=== PATIENT | male | born 1940 | race Caucasian/White ===

== ENCOUNTER 2016-12-07 23:25 | Inpatient (IN) | payer OTHER ==
--- NOTE | ~2016-12-07 | DS ---
Discharge Summary [facility] [address] [facility] [place]. [address] NAME: BIN LIU : 41 STATUS : DIS IN PAT#: [id number] AGE: 76 ADM/REG DATE : 12/08/16 MR#: [id number] REPORT SERV DATE: 12/11/16 DICTATED BY: DATE: REPORT STATUS : Draft TRANSCRIBED BY: MODL DATE: 12/10/16 ADMISSION DATE: 12/08/2016 DISCHARGE DATE: 12/10/2016 DISCHARGE DIAGNOSES: 1. Left ureteral obstruction status post cystoscopy and stent placement. 2. Abnormal urinalysis. 3. Neutropenia chemo induced. 4. Hypocalcemia. 5. Metastatic prostate cancer. 6. Constipation. CONSULTATIONS: 1. Solitario Martinez M.D., Urology. 2. Evangelista Tang M.D., [facility]. PERTINENT TESTS AND PROCEDURES: 1. Cystoscopy urethral dilation. Left ureteral stent placement and complex catheterization on 12/08/2016. 2. Urinalysis, specimen collected 12/07/2016, moderate leukocyte tray, negative nitrite, 35 red blood cells, 45 white blood cells, rare bacteria. 3. Urine culture, final result, approximately 100,000 colonies. Staph species coag- negative likely specimen contamination. 4. Urinalysis, urine collected on 12/09/2016 in setting of greater than 24 hour antibiotic therapy. Result, large blood, negative leukocyte tray, positive nitrites, greater than 182 red blood cells, 0 white blood cells, less than 1 epithelial squamous cell. LABORATORY DATA: Sodium 146, potassium 4.1, chloride 113, BUN 16, creatinine 1.05, GFR 80, glucose 118, calcium 6.9, and ionized calcium 4.13. White blood cell count 1.2, hemoglobin 9.0, hematocrit 26.9, platelets 226, and absolute neutrophil count 170. HOSPITAL COURSE: Please refer to history and physical dated 12/08/[address] Jeb Scruggs for complete details of the patient's initial presentation upon admission and health history. Also refer to consultation dated 12/09/[address] Solitario Martinez, Urology. Briefly, the patient is a 76-year-old male with a history of metastatic prostate cancer with known metastases to the bones. The patient presented to the emergency department on 12/08/2016 with complaints of left lower back and flank pain. Initial evaluation in the emergency department was notable for stable vital signs, Discharge Summary [address] [place]. [address] NAME: BIN LIU : 41 STATUS : DIS IN PAT#: [id number] AGE: 76 ADM/REG DATE : 12/08/16 MR#: [id number] REPORT SERV DATE: 12/11/16 DICTATED BY: DATE: REPORT STATUS : Draft TRANSCRIBED BY: MODL DATE: 12/10/16 leukopenia of 1.2, absolute neutrophil count of 190, and evidence of a urinary tract infection. Initial workup diagnostic testing included CT of the abdomen and pelvis, which showed a 5 mm obstructing left ureteral calculus with moderate hydronephrosis and hydroureter. The patient was started on IV fluids and cefepime, and was admitted to the hospital for further evaluation and management. Urology was consulted, and the patient underwent cystoscopy, urethral dilation, left retrograde pyelogram, left ureteral stent placement and complex catheterization on 12/08/2016. The patient tolerated procedure without difficulty. Low back and flank pain has now completely resolved. The patient will discharge home with Akbar catheter in place with followup on 12/21/[address] Martinez, Urology, for Akbar removal and repeat KUB. 1. Left ureteral obstruction. The patient is status post cystoscopy with stent placement. Akbar catheter will remain in place upon discharge. Urine output 1350 mL in the past 24 hours. 2. Abnormal urinalysis. Urinalysis obtained upon admission was suspicious for infection; however, urine culture indicated contaminated specimen. The specimen was recollected on 12/09/2016 in the setting of antibiotic therapy greater than 24 hours. The patient was initially placed on cefepime upon admission secondary to probable urinary tract infection in the setting of neutropenia. Per Urology recommendation, the patient is to continue antibiotic therapy for 10 to 14 days total therapy. The patient was transitioned to Levaquin 750 mg p.o. every 24 hours last p.m. The patient will continue this therapy through 12/17/2016 to complete a total 10-day course of antibiotic. The patient has remained afebrile with no clinical signs or symptoms of recurrence of infection. 3. Neutropenia, this is chemotherapy induced. The patient will follow up with Dr. Sheikh at [facility] at 1:45 today. 4. Hypocalcemia. This may be related to low albumin. Ionized calcium was obtained prior to discharge and within normal limits. 5. Metastatic prostate cancer. The patient is under the outpatient care of Dr. Sheikh. He is currently being treated with Lupron and docetaxel. 6. Constipation. Constipation was resolved with bowel regimen to include MiraLAX and Senokot. The patient was advised to continue home MiraLAX while taking home pain medication prescribed per Urology. DISCHARGE CONDITION: At the time of discharge, the patient is hemodynamically stable. DISCHARGED DIET: 2000 calorie regular diet. DISCHARGE MEDICATIONS: 1. Lipitor 20 mg tablet p.o. daily at bedtime. 2. Levaquin 750 mg tablet p.o. every 24 hours, continued through 12/17/2016 to complete 10- day therapy. 3. MiraLAX 17 g p.o. daily at bedtime. Hold for diarrhea. 4. Flomax 0.4 mg tablet p.o. at bedtime. 5. Deltasone 5 mg tablet p.o. at bedtime. The patient takes his medication with supper; Discharge Summary [id number] [place]. [address] NAME: BIN LIU : 41 STATUS : DIS IN PAT#: [id number] AGE: 76 ADM/REG DATE : 12/08/16 MR#: [id number] REPORT SERV DATE: 12/11/16 DICTATED BY: DATE: REPORT STATUS : Draft TRANSCRIBED BY: MODL DATE: 12/10/16 however, it should be scheduled in a.m. Educate the patient regarding change in time of medication. 6. Compazine 10 mg tablet p.o. every 6 hours as needed. 7. Tylenol PM with diphenhydramine. The patient was encouraged to discontinue use of this medication secondary to recent urinary retention/obstruction. 8. Pyridium 200 mg tablet p.o. three times daily as needed. 9. Percocet 5/325 mg tablet p.o. every 4 hours as needed. Hold for sedation. DISCHARGE INSTRUCTIONS: 1. Follow up with Dr. Martinez on 12/21/2016 at 2:15 p.m. for Akbar removal and repeat KUB. 2. Follow up with Dr. Sheikh today at 1:45 p.m. The patient and his spouse were instructed to return to the emergency department if the patient experiences acute onset of fever 100.4 or greater lasting more than one hour, intractable chills, rigors, sweats, decreased or absence of Akbar catheter urine output, change in urine output to include blood clots or hematuria or any other health deviations that are new compared to baseline condition at the time of discharge. NELY/JOSEFA SOLE Portillo / [id number] CC: MD Sunny Perkins II, M.D.
--- NOTE | ~2016-12-07 | HP ---
History And Physical [place] [place]. [address] NAME: BIN LIU : 41 STATUS : ADM IN [facility]#: [id number] AGE: 76 ADM/REG DATE : 12/08/16 MR#: [id number] REPORT SERV DATE: 12/08/16 DICTATED BY: DONY VALLE DATE: 12/08/16 REPORT STATUS : Draft TRANSCRIBED BY: MODL DATE: 12/08/16 DATE OF ADMISSION: 12/08/2016 POINT OF ENTRY: [facility] Emergency Department. PRIMARY CARE PHYSICIAN: Sunny Medina M.D. PRIMARY ONCOLOGIST: Jamison Sheikh M.D. PRIMARY UROLOGIST: Solitario Martinez M.D. CHIEF COMPLAINT: Left lower back and flank pain. HISTORY OF PRESENT ILLNESS: Mr. Liu is a 76-year-old gentleman with a history of metastatic prostate cancer with known metastases to the bones that is unfortunately resistant to radiation therapy, antihormonal therapy, as well as Zytiga who presents with a one-day history of left-sided lower back and flank pain. The patient states he completed his chemotherapy regimen last week with Dr. Sheikh. He is unable to tell me what regimen he was going through. He saw Dr. Sheikh in clinic today, was noted to be leukopenic and neutropenic as well as there was some concern for dehydration. Dr. Sheikh gave him a liter of IV fluids and sent him home. The patient states initially the left lower back pain started last night and resolved somewhat with heat therapy at home. Shortly after seeing Dr. Sheikh in clinic today, he started to have sharp and stabbing left flank pain in the area of his kidney. Per discussion with Dr. Martinez as well as Dr. Sheikh, it was recommended a followup in the emergency department for further evaluation. He denies any fevers, night sweats, chills, chest pain, shortness of breath, abdominal pain, nausea, vomiting, diarrhea, constipation, dysuria, melena, hematochezia, or hemoptysis. Initial evaluation in the emergency department is notable for stable vital signs, labs notable for leukopenia of 1.2, neutropenic with a total neutrophils of 190, evidence of urinary tract infection. CT scan of the abdomen and pelvis shows a 5 mm obstructing left ureteral calculus with moderate hydronephrosis and hydroureter. The patient was started on IV fluids and antibiotics and admitted to the Hospitalist Service for further evaluation and management. REVIEW OF SYSTEMS: Comprehensive review of systems otherwise negative unless listed in the history present of illness. PREVIOUS MEDICAL HISTORY: 1. Metastatic prostate cancer with known metastases to the bones that has failed radiation therapy as well as antihormonal therapy, followed by Dr. Sheikh. History And Physical [address] [address] NAME: BIN LIU : 41 STATUS : ADM IN PAT#: [id number] AGE: 76 ADM/REG DATE : 12/08/16 MR#: [id number] REPORT SERV DATE: 12/08/16 DICTATED BY: DONY VALLE DATE: 12/08/16 REPORT STATUS : Draft TRANSCRIBED BY: JOSEFA DATE: 12/08/16 2. History of nephrolithiasis. 3. Hyperlipidemia. PAST SURGICAL HISTORY: Brachytherapy seed implantation. ALLERGIES: NO KNOWN DRUG ALLERGIES. HOME MEDICATIONS: 1. Atorvastatin 20 mg q.h.s. 2. Tylenol PM one tablet q.h.s. 3. Prednisone 5 mg q.h.s. 4. Compazine 10 mg q.6 hours p.r.n. 5. Flomax 0.4 mg q.h.s. SOCIAL HISTORY: Denies any tobacco, alcohol, or illicits. FAMILY MEDICAL HISTORY: Mother of old age in her early 90s. Father, stroke. Siblings, healthy. No known immediate or extended family history of prostate cancer. LABS AND IMAGIN. White count is 1.2, hemoglobin 10.5, hematocrit is 31.7, and platelet count is 109. PMNs are 190. 2. Sodium is 140, potassium 3.7, chloride 108, carbon dioxide 29, BUN 16, creatinine 1.05, glucose is 117, calcium is 8.7, protein is 5.7, albumin is 3.0, bilirubin is 0.7, ALT is 14, AST 9, and alkaline phosphatase is 69. 3. Lipase is 129. 4. Urinalysis: Spec gravity is 1.024, hazy in appearance, moderate leukocyte esterase, 35 reds, and 45 white blood cells per high-powered field with rare bacteria. 5. CT scan of the abdomen and pelvis shows a 5 mm left-sided ureteral calculus with resulting moderate hydroureteronephrosis as well as evidence of cholelithiasis without evidence of cholecystitis. PHYSICAL EXAMINATION: VITAL SIGNS: Temperature is 98.4 degrees Fahrenheit, pulse is 88, respirations 16, saturating 97% on room air, and blood pressure 123/59. On recheck, blood pressure is now 115/64 and pulse of 82. GENERAL: The patient is awake, alert, in no acute distress, and resting comfortably in bed. He is a well-developed, well-nourished, elderly male. HEENT: Atraumatic and normocephalic. Moist mucous membranes. Pupils are equal, round, reactive to light and accommodation. Extraocular eye movements are intact. No evidence of mucositis or thrush. NECK: No jugular venous distention. No carotid bruits. CARDIAC: Regular rate and rhythm. No murmurs, rubs, or gallops. Normal S1 and S2. LUNGS: Clear to auscultation bilaterally. No wheezes, rhonchi, or crackles. ABDOMEN: Obese, soft, nontender, and nondistended with good bowel sounds. No rebound, guarding, or rigidity. : No CVA tenderness or flank tenderness on palpation. History And Physical [address] [address] NAME: BIN LIU : 41 STATUS : ADM IN [facility]#: [id number] AGE: 76 ADM/REG DATE : 12/08/16 MR#: [id number] REPORT SERV DATE: 12/08/16 DICTATED BY: DONY VALLE DATE: 12/08/16 REPORT STATUS : Draft TRANSCRIBED BY: MODMarquis DATE: 12/08/16 EXTREMITIES: Warm and well perfused. No cyanosis, clubbing, or edema. SKIN: Warm and dry. PSYCH: Affect appropriate. NEURO: Alert and oriented x3. Cranial nerves II through XII are grossly intact. Speech is normal. Gait not assessed. ASSESSMENT AND PLAN: Mr. Liu is a 76-year-old gentleman with history of metastatic prostate cancer, recently completed a course of chemotherapy, now admitted with left back and flank pain, and found to have evidence of obstructing left-sided ureteral calculus as well as neutropenia. PROBLEM LIST: 1. Obstructing left-sided ureteral calculus with hydronephrosis and hydroureter. 2. Urinary tract infection. 3. Neutropenia. 4. Metastatic prostate cancer. PLAN: 1. Obstructing ureteral calculus with hydronephrosis and hydroureter. Provide supportive care with IV fluids, antiemetics, and pain control. Urology, Dr. Martinez, has already been consulted and planned for cystoscopy with stent placement in the morning. I will defer to both Dr. Martinez as well as Dr. Sheikh whether this procedure is indicated in the setting of neutropenia and active infection. 2. Urinary tract infection. The patient has received IV Rocephin here in the emergency department. I will broaden this to IV cefepime given his neutropenia. Followup urine cultures. 3. Neutropenia. Provide neutropenic precautions, aggressive antibiotic with IV cefepime. Checking procalcitonin as well as lactic acid level given urinary tract infection. Unfortunately, antibiotics were already given prior to collection of blood cultures. 4. Metastatic prostate cancer. We will consult Dr. Sheikh for assistance especially with his neutropenia and plan for cystoscopy with stent placement. 5. DVT prophylaxis. Heparin subcutaneously. 6. Code status. The patient wished to be full code. BRANDI/NICOLEL Dony Valle MD / [id number] CC: MD Sunny Perkins II, M.D. Michael Stipanov, M.D. History And Physical [address] [address] NAME: BIN LIU : 41 STATUS : ADM IN [facility]#: [id number] AGE: 76 ADM/REG DATE : 12/08/16 MR#: [id number] REPORT SERV DATE: 12/08/16 DICTATED BY: DONY VALLE DATE: 12/08/16 REPORT STATUS : Draft TRANSCRIBED BY: MODL DATE: 12/08/16 Solitario Martinez M.D.
--- NOTE | ~2016-12-07 | OP ---
Record Of Operation [facility] [address] [place]. [address] NAME: BIN LIU : 41 STATUS : ADM IN PAT#: [id number] AGE: 76 ADM/REG DATE : 12/08/16 MR#: [id number] REPORT SERV DATE: 12/08/16 DICTATED BY: RHYS RONQUILLO DATE: 12/08/16 REPORT STATUS : Draft TRANSCRIBED BY: MODMarquis DATE: 12/08/16 DATE OF PROCEDURE: 12/08/2016 PREOPERATIVE DIAGNOSIS: 1. Stage D prostate cancer, on Lupron and chemotherapy. 2. Left ureteral obstruction from a 5 mm mid left ureteral stone. 3. Urinary tract infection. POSTOPERATIVE DIAGNOSIS: 1. Stage D prostate cancer, on Lupron and chemotherapy. 2. Left ureteral obstruction from a 5 mm mid left ureteral stone. 3. Urinary tract infection. 4. Urethral stricture and scarred prostate. PROCEDURE PERFORMED: Cystoscopy, urethral dilation, left retrograde pyelogram, left ureteral stent placement, and complex catheterization. SURGEON: Rhys Ronquillo M.D. ANESTHESIA: General. ESTIMATED BLOOD LOSS: 15 mL. INDICATIONS: This is a 76-year-old white male, with stage D prostate cancer, on Lupron and chemotherapy. He developed intractable left flank pain last evening prompting an emergency room visit, and he was found to have an obstructing 5 mm left mid ureteral stone. His urine also looked infected. We are planning cystoscopy with left retrograde and left ureteral stent placement. The procedure itself as well as risks of infection, bleeding, failure, possible need for PCN placement have been discussed. PROCEDURE IN DETAIL: The patient was taken to the operating room and underwent a general anesthetic. He was placed in a lithotomy position on the table, and his external genitalia were sterilely prepped and draped. The 22-Bolivian cystoscope sheath with 30-degree lens was inserted under direct vision per urethra and advanced up to a level close to the bulbar urethra where a scar was noted. This was not passable with the scope. I was able to advance a long filiforms through it through the cystoscope, and dilated the area up to 22- Bolivian using followers. The 20-Bolivian cystoscope sheath with 30-degree lens was then advanced through this area. The prostate was small, but diffusely scarred, it appeared that the scarring ran from roughly the bulbar urethra through the prostate and to the bladder neck area. This was very raw looking, but there was not a lot of bleeding. The visibility in the bladder was poor and due to do this scarred prostate and bladder neck ability to torque the scope was very limited. I did not see the right orifice, I did see the left orifice and it looked normal. The bladder floor did not show any obvious tumor. The bladder sidewalls, posterior wall, and anterior wall were not well seen. I was able to place a 5-Bolivian open-ended catheter up into the left orifice and a retrograde pyelogram was obtained showing a mild dilatation of the ureter down into the pelvic area. I am not sure Record Of Operation [address] [place]. [address] NAME: BIN LIU : 41 STATUS : ADM [facility]#: [id number] AGE: 76 ADM/REG DATE : 12/08/16 MR#: [id number] REPORT SERV DATE: 12/08/16 DICTATED BY: RHYS RONQUILLO DATE: 12/08/16 REPORT STATUS : Draft TRANSCRIBED BY: JOSEFA DATE: 12/08/16 we ever saw a discrete stone. The renal collecting system was [id number] dilated. An 0.038 guidewire was advanced up through the cystoscope into the collecting system of the ureter under fluoroscopic guidance. A 5-Bolivian x 26 cm Polaris stent was advanced over the guidewire such that the proximal end of the stent was observed to coil in the pelvis of the kidney under fluoroscopic guidance and the distal end of the stent was visually observed to coil in the bladder following removal of the guidewire. A guidewire was then run through the cystoscope into the bladder, and the cystoscope was withdrawn over the guidewire, and a 20-Bolivian [place] tip catheter was advanced over the guidewire into the bladder without difficulty, and left to gravity drainage. The patient tolerated the procedure well. There were no complications. He was taken to recovery in stable condition. PEBBLES/JOSEFA Rhys Ronquillo M.D. / [id number] CC: MD Sunny Perkins II, M.D.
--- NOTE | ~2016-12-07 | CN ---
Consultation Report [facility] [address] [place]. [address] NAME: BIN LIU : 41 STATUS : ADM IN [facility]#: [id number] AGE: 76 ADM/REG DATE : 12/08/16 MR#: [id number] REPORT SERV DATE: 12/09/16 DICTATED BY: RHYS RONQUILLO DATE: 12/08/16 REPORT STATUS : Draft TRANSCRIBED BY: MODL DATE: 12/08/16 CONSULT DATE OF CONSULTATION: 12/08/2016 HISTORY: This is a 76-year-old white male, who is well known to me. He has stage D hormone- resistant prostate cancer and has just completed chemotherapy protocol per Dr. Sheikh. He, yesterday, abruptly developed severe intolerable left flank pain and went to the emergency room with this complaint. Evaluation in the emergency room demonstrated moderate left hydronephrosis associated with a 5-mm stone at the level of L4. His urine appeared to be infected as well. He has been admitted for antibiotic coverage and management of his obstructive uropathy. He denies running any fevers at home. He is about on baseline in terms of his voiding. He is able to void spontaneously. He does have significant urinary incontinence requiring wearing diapers. He was initially treated for prostate cancer approximately in 09/2006 with brachytherapy. He was subsequently given salvage cryotherapy in 06/2008. He was started on Lupron due to a rising PSA around 2009 and his PSA has slowly advanced despite this. He has subsequently completed failed rounds of Xtandi and Zytiga and has now just completed a round of chemotherapy by Dr. Sheikh. His admitting lab work showed him to be neutropenic as well with a white count of, I believe, 1.0. MEDICAL HISTORY: Otherwise includes a remote history of nephrolithiasis and hyperlipidemia. SURGICAL HISTORY: Outlined above. SOCIAL HISTORY: He is retired. He does not drink or smoke. He is . MEDICATIONS: Atorvastatin, Tylenol, prednisone, Compazine, Flomax, and Lupron. ALLERGIES: HE HAS NO ALLERGIES. PHYSICAL EXAMINATION: GENERAL: He is a pleasant white male, who is in no distress at this time. He is alert, oriented, and conversive. VITAL SIGNS: He is afebrile. His vital signs are stable. HEENT: Pupils, equal, round, and reactive. Extraocular movements intact. Oropharynx is clear. NECK: Supple. LUNGS: Clear. HEART: Regular. ABDOMEN: Soft, nontender, and nondistended. Mildly obese. BACK: No overt CVA tenderness. : Penis uncircumcised, normal. Testes, epididymitis, spermatic cords feel normal. Prostate gland actually feels relatively normal and is actually somewhat small. EXTREMITIES: No cyanosis or edema. Consultation Report [address] [place]. [address] NAME: BIN LIU : 42 STATUS : ADM IN PAT#: [id number] AGE: 76 ADM/REG DATE : 12/08/16 MR#: [id number] REPORT SERV DATE: 12/09/16 DICTATED BY: RHYS RONQUILLO DATE: 12/08/16 REPORT STATUS : Draft TRANSCRIBED BY: JOSEFA DATE: 12/08/16 IMPRESSION: 1. Stage D prostate cancer, on Lupron and chemotherapy. 2. Obstructing 5-mm mid left ureteral stone with intractable flank pain. 3. Urinary tract infection. 4. Neutropenia from his chemotherapy. 5. Remote history of prostate seed implantation with salvage cryotherapy. RECOMMENDATIONS: I agree completely with his current management. Urine culture is pending. I am going plan cystoscopy retrograde, left ureteral stenting today. This procedure has been discussed with the patient and his . They understand he will need delayed definitive stone treatment once his infection has resolved. We will follow along with you. Thank you for the consult. PEBBLES/JOSEFA Rhys Ronquillo M.D. / [id number] CC: MD Sunny Perkins II, M.D.
[2016-12-07 21:33] LABS: BASOPHILS 1.7 %; BASOPHILS ABSOLUTE 0.02 10/3/uL (0.0-0.16); EOSINOPHILS 0.9 %; EOSINOPHILS ABSOLUTE 0.01 10/3/uL (0.0-0.53); HEMOGLOBIN 10.5 g/dL (13.6-17.8); IMMATURE GRANULOCYTES 0.9 %; IMMATURE GRANULOCYTES ABSOLUTE 0.01 10/3/uL (0.0-0.11); LYMPHOCYTES 57.8 %; LYMPHOCYTES ABSOLUTE 0.67 10/3/uL (0.67-4.30); MEAN CORPUS HGB CONC 33.1 g/dL (32.0-36.0); MEAN CORPUSCULAR HEMOGLOB 30.4 pg (26.0-34.0); MEAN PLATELET VOLUME 9.4 fL (9.2-13.0); MONOCYTES 22.4 %; MONOCYTES ABSOLUTE 0.26 10/3/uL (0.21-1.20); NEUTROPHILS 16.3 %; NEUTROPHILS ABSOLUTE 0.19 10/3/uL (2.02-8.40); PLATELET COUNT 199 10/3/uL (150-400); RBC DISTRIBUTION WIDTH 15.6 % (12.0-16.0); RED CELL COUNT 3.45 10/6/uL (4.7-6.1)
[2016-12-07 21:36] LABS: ER CBC TAT 0 Hrs 07 Mins; HEMATOCRIT 31.7 % (40.0-51.0); MEAN CORPUSCULAR VOLUME 91.9 fL (80-100); WHITE BLOOD CELLS 1.2 10/3/uL (4.5-10.5)
[2016-12-07 21:38] LABS: MANUAL DIFF NO %
[2016-12-07 21:48] LABS: A/G RATIO 1.1 (0.7-1.9); ALKALINE PHOSPHATASE 69 U/L (45-117); BUN (BLOOD UREA NITROGEN) 16 MG/DL (6-23); CALCIUM, SERUM 8.7 MG/DL (8.5-10.4); CHLORIDE, SERUM 108 MMOL/L (96-112); CO2 (CARBON DIOXIDE) 29 MMOL/L (24-34); CREATININE 1.05 MG/DL (0.70-1.30); GFR AFRICAN AMERICAN 80 ML/MIN (>=60); GFR NON AFRICAN AMERICAN 69 ML/MIN (>=60); GLOBULIN 2.7 G/DL (2.5-4.1); GLUCOSE, SERUM 117 MG/DL (60-99); POTASSIUM, SERUM 3.7 MMOL/L (3.5-5.3); SGOT(AST) 9 U/L (5-40); SGPT(ALT) 14 U/L (5-65); SODIUM, SERUM 140 MMOL/L (135-148); TOTAL BILIRUBIN 0.7 MG/DL (0-1.2); TOTAL PROTEIN 5.7 G/DL (6.0-8.5)
[2016-12-07 22:15] LABS: ASCORBIC ACID (UR NOT ORDER) NEG (NEG); BILIRUBIN, URINE NEGATIVE (NEG); ER URINALYSIS TAT 0 Hrs 12 Mins; KETONE, URINE NEGATIVE (NEG); LEUKOCYTE ESTERASE(NOT OR MOD (NEG); NITRITE (URINE) NEG (NEG); WBC (NOT ORDERED) (RFLEX) 45 (0-5)
[2016-12-07 22:45] LABS: SEGMENTED NEUTROPHIL (0) 12 %; TOTAL NUCLEATED CELLS 50
[2016-12-07 22:46] LABS: ANISOCYTOSIS 1+ (5-10/OIF) (0-5/OIF); BAND NEUTROPHILS 2 %; BASOPHILS 2 %; BASOPHILS ABSOLUTE (CALC) 0.02 10/3/uL (0.0-0.16); ER DIFF TAT 1 Hrs 16 Mins; GIANT PLATELET OCC; LYMPHOCYTES 50 %; MONOCYTES 34 %; MONOCYTES ABSOLUTE (CALC) 0.41 10/3/uL (0.21-1.20); NEUTROPHILS ABSOLUTE (CALC) 0.17 10/3/uL (2.02-8.40); PLATELET ESTIMATE ADQ (ADEQUATE); POIKILOCYTOSIS 1+ (5-10/OIF) (0-5/OIF)
[~2016-12-07 23:25] MED LIST: CALCIUM IM; CALTRA600D PO; CASODEX 50 MG T50 MG OR; CASODEX 50 MG T50 MG PO; CIP5 PO; FISH-EPA1000 MG PO; FLOMAX4 PO; GLUCCHONDR PO; LIPITOR20 PO; LUPRON IM; LUPRON2 WEEK IJ; OS500+D PO; PCET PO; PROMEGA PO; PYR200 PO; XTANDI PO
[2016-12-08] MEDS ORDERED: FLOMAX4 PO (01:04)
[2016-12-08] MEDS ORDERED: LIPITOR20 PO (01:04)
[2016-12-08] MEDS ORDERED: COMP10B PO (01:05)
[2016-12-08] MEDS ORDERED: P5 PO (01:05)
[2016-12-08] MEDS ORDERED: TYLENOL PM PO (01:06)
[2016-12-08 03:16] LABS: LACTATE 1.6 MMOL/L (0.3-2.4)
[2016-12-08 06:39] LABS: HEMATOCRIT 30.8 % (40.0-51.0); HEMOGLOBIN 9.9 g/dL (13.6-17.8); MANUAL DIFF YES %; MEAN CORPUS HGB CONC 32.1 g/dL (32.0-36.0); MEAN CORPUSCULAR VOLUME 93.3 fL (80-100); MEAN PLATELET VOLUME 9.7 fL (9.2-13.0); PLATELET COUNT 204 10/3/uL (150-400); RBC DISTRIBUTION WIDTH 15.3 % (12.0-16.0)
[2016-12-08 06:49] LABS: BUN (BLOOD UREA NITROGEN) 14 MG/DL (6-23); CALCIUM, SERUM 8.2 MG/DL (8.5-10.4); CHLORIDE, SERUM 113 MMOL/L (96-112); CO2 (CARBON DIOXIDE) 25 MMOL/L (24-34); CREATININE 1.03 MG/DL (0.70-1.30); GFR AFRICAN AMERICAN 82 ML/MIN (>=60); GFR NON AFRICAN AMERICAN 71 ML/MIN (>=60); GLUCOSE, SERUM 119 MG/DL (60-99); POTASSIUM, SERUM 3.9 MMOL/L (3.5-5.3); SODIUM, SERUM 145 MMOL/L (135-148)
[2016-12-08 07:22] LABS: EOSINOPHILS 2 %; EOSINOPHILS ABSOLUTE (CALC) 0.02 10/3/uL (0.0-0.53); IMMATURE GRANS ABSOLUTE (CALC) 0.01 10/3/uL (0.0-0.11); LYMPHOCYTES 53 %; LYMPHOCYTES ABSOLUTE (CALC) 0.53 10/3/uL (0.67-4.30); MONOCYTES 26 %; MONOCYTES ABSOLUTE (CALC) 0.26 10/3/uL (0.21-1.20); MYELOCYTES 1 %; NEUTROPHILS ABSOLUTE (CALC) 0.18 10/3/uL (2.02-8.40); PLATELET ESTIMATE ADQ (ADEQUATE); SEGMENTED NEUTROPHIL (0) 18 %; TOTAL NUCLEATED CELLS 100
[2016-12-08 07:23] LABS: BURR CELLS 1+ (3-10/OIF) (0-2/OIF)
[2016-12-08 07:24] LABS: GIANT PLATELET OCC; OVALOCYTES 1+ (3-10/OIF) (0-2/OIF)
[2016-12-08 07:25] LABS: POIKILOCYTOSIS 1+ (5-10/OIF) (0-5/OIF)
[2016-12-09 05:17] LABS: HEMATOCRIT 29.1 % (40.0-51.0); HEMOGLOBIN 9.5 g/dL (13.6-17.8); MEAN CORPUS HGB CONC 32.6 g/dL (32.0-36.0); MEAN CORPUSCULAR HEMOGLOB 30.2 pg (26.0-34.0); MEAN CORPUSCULAR VOLUME 92.4 fL (80-100); MEAN PLATELET VOLUME 9.6 fL (9.2-13.0); PLATELET COUNT 203 10/3/uL (150-400); RBC DISTRIBUTION WIDTH 15.7 % (12.0-16.0); RED CELL COUNT 3.15 10/6/uL (4.7-6.1)
[2016-12-09 05:24] LABS: BUN (BLOOD UREA NITROGEN) 17 MG/DL (6-23); CALCIUM, SERUM 7.5 MG/DL (8.5-10.4); CHLORIDE, SERUM 112 MMOL/L (96-112); CO2 (CARBON DIOXIDE) 26 MMOL/L (24-34); CREATININE 1.07 MG/DL (0.70-1.30); GFR AFRICAN AMERICAN 78 ML/MIN (>=60); GFR NON AFRICAN AMERICAN 68 ML/MIN (>=60); MANUAL DIFF YES %; POTASSIUM, SERUM 4.3 MMOL/L (3.5-5.3); SODIUM, SERUM 144 MMOL/L (135-148); WHITE BLOOD CELLS 0.7 10/3/uL (4.5-10.5)
[2016-12-09 05:26] LABS: GLUCOSE, SERUM 171 MG/DL (60-99)
[2016-12-09 05:58] LABS: BAND NEUTROPHILS 1 %; LYMPHOCYTES 32 %; LYMPHOCYTES ABSOLUTE (CALC) 0.29 10/3/uL (0.67-4.30); MONOCYTES 25 %; MONOCYTES ABSOLUTE (CALC) 0.04 10/3/uL (0.21-1.20); NEUTROPHILS ABSOLUTE (CALC) 0.37 10/3/uL (2.02-8.40); PLATELET ESTIMATE ADQ (ADEQUATE); SEGMENTED NEUTROPHIL (0) 42 %; TOTAL NUCLEATED CELLS 100
[2016-12-09 05:59] LABS: RBC MORPHOLOGY NORM (NORMAL)
[2016-12-09 14:03] LABS: WBC (NOT ORDERED) (RFLEX) 0 (0-5)
[2016-12-09 14:18] LABS: ASCORBIC ACID (UR NOT ORDER) NEG (NEG); BILIRUBIN, URINE NEGATIVE (NEG); KETONE, URINE NEGATIVE (NEG); LEUKOCYTE ESTERASE(NOT OR NEG (NEG)
[2016-12-10 03:26] LABS: HEMATOCRIT 26.9 % (40.0-51.0); MEAN CORPUS HGB CONC 33.5 g/dL (32.0-36.0); MEAN CORPUSCULAR HEMOGLOB 30.7 pg (26.0-34.0); MEAN CORPUSCULAR VOLUME 91.8 fL (80-100); MEAN PLATELET VOLUME 9.5 fL (9.2-13.0); PLATELET COUNT 226 10/3/uL (150-400); RBC DISTRIBUTION WIDTH 15.6 % (12.0-16.0); RED CELL COUNT 2.93 10/6/uL (4.7-6.1)
[2016-12-10 03:27] LABS: MANUAL DIFF YES %; WHITE BLOOD CELLS 1.2 10/3/uL (4.5-10.5)
[2016-12-10 03:39] LABS: BUN (BLOOD UREA NITROGEN) 16 MG/DL (6-23); CHLORIDE, SERUM 113 MMOL/L (96-112); CO2 (CARBON DIOXIDE) 26 MMOL/L (24-34); CREATININE 1.05 MG/DL (0.70-1.30); GFR AFRICAN AMERICAN 80 ML/MIN (>=60); GFR NON AFRICAN AMERICAN 69 ML/MIN (>=60); POTASSIUM, SERUM 4.1 MMOL/L (3.5-5.3); SODIUM, SERUM 146 MMOL/L (135-148)
[2016-12-10 03:40] LABS: CALCIUM, SERUM 6.9 MG/DL (8.5-10.4); GLUCOSE, SERUM 118 MG/DL (60-99)
[2016-12-10 03:56] LABS: IMMATURE GRANS ABSOLUTE (CALC) 0.01 10/3/uL (0.0-0.11); LYMPHOCYTES 33 %; METAMYELOCYTES 1 %; MONOCYTES 52 %; MONOCYTES ABSOLUTE (CALC) 0.62 10/3/uL (0.21-1.20); NEUTROPHILS ABSOLUTE (CALC) 0.17 10/3/uL (2.02-8.40); PLATELET ESTIMATE ADQ (ADEQUATE); RBC MORPHOLOGY NORM (NORMAL); SEGMENTED NEUTROPHIL (0) 14 %; TOTAL NUCLEATED CELLS 100
[2016-12-10] MEDS ORDERED: LEVAQUIN750 MG PO (10:37)
[2016-12-10] MEDS ORDERED: PYR200 PO (10:37)
[2016-12-10] MEDS ORDERED: PCET PO (10:41)
== END 2016-12-10 11:11 | disposition home or self-care (01) | DRG 690 ==
LOC: ER 23:25 → 4EA 12-08 01:44
PROVIDERS: Hospitalist; Internal Medicine; Nurse Practitioner Family; Urology
PROC: 0T778DZ Dilation of Left Ureter with Intraluminal Device, Via Natural or Artificial Opening Endoscopic (ICD-10-PCS; principal; 2016-12-08 14:45)
DX: N13.6 Pyonephrosis (principal); C79.51 Secondary malignant neoplasm of bone; D70.1 Agranulocytosis secondary to cancer chemotherapy; C61 Malignant neoplasm of prostate; E83.51 Hypocalcemia; N39.0 Urinary tract infection, site not specified
CPT/HCPCS: 74176; 74420; 80048; 80053; 81001; 82330; 83605; 83690; 84145; 85007; 85025; 85027; 87086; 93005; 96374; 99285; A9270-GY; C1758; C2617; J0692; J1170; J1885; J2250; J2370; J2405; J3010; Q9967